=== PATIENT | female | born 1970 | race American Indian/Alaskan Native ===

== ENCOUNTER 2020-05-03 09:24 | Emergency (ER) | payer OTHER ==
[2020-05-03 10:38] LABS: Basophils % (Auto) 0.4 % (0.0-1.8); Eosinophils # (Auto) 0.1 K/mm3 (0.0-0.4); Eosinophils % (Auto) 0.9 % (0.0-4.3); Hematocrit 22.2 % (30.3-42.9); Hemoglobin 7.2 gm/dl (10.1-14.3); Lymphocytes # (Auto) 2.1 K/mm3 (1.2-5.4); Lymphocytes % (Auto) 26.1 % (13.4-35.0); Mean Corpuscular HGB Conc 32 % (30-34); Monocytes # (Auto) 0.6 K/mm3 (0.0-0.8); Platelet Count 372 K/mm3 (140-440); Red Blood Count 3.59 M/mm3 (3.65-5.03)
--- NOTE | 2020-05-03 10:45 | Emergency Department Report ---
ED Female HPI - General Chief complaint: Vaginal Bleeding Stated complaint: ABD PAIN, MENSTRAL HEAVY BLEEDING Time Seen by Provider: 05/03/20 10:41 Source: patient Mode of arrival: Ambulatory Limitations: No Limitations - History of Present Illness Initial comments: 50-year-old female, history of hypertension, fibroids, presents to ED with complaint of vaginal bleeding. Patient reports her menstrual period has been on for 2 weeks. States this is the first time her period has lasted this long. She states that usually last for 3 or 4 days, and is not heavy. However, this time she has had both heavy and prolonged bleeding. She reports history of fibroids for which she has had 3 surgeries, the last of which was 10 years ago. She denies any history of anemia. Patient reports dizziness, lightheadedness, fatigue. MD Complaint: vaginal bleeding -: week(s) (2) Severity: severe Quality: cramping Consistency: constant Improves with: none Worsens with: none Are you Now?: No Associated Symptoms: vaginal bleeding, abdominal pain - Related Data Previous Rx's Medication Instructions Recorded Last Taken Type Ferrous Sulfate [Ferrous Sulfate 324 mg PO TID #90 tablet. 05/03/20 Unknown Rx 324 MG] Norgestimate-Ethinyl Estradiol 1 each PO QDAY #18 tablet 05/03/20 Unknown Rx [Sprintec 28 Day Tablet] Sulfamethoxazole/Trimethoprim 1 each PO BID #6 tablet 05/03/20 Unknown Rx [Bactrim DS TAB] Allergies Allergy/AdvReac Type Severity Reaction Status Date / Time No Known Allergies Allergy Unverified 06/10/14 14:48 ED Review of Systems ROS: Stated complaint: ABD PAIN, MENSTRAL HEAVY BLEEDING Other details as noted in HPI Comment: All other systems reviewed and negative Constitutional: malaise, weakness Gastrointestinal: abdominal pain Genitourinary: abnormal menses Neurological: other (Reports dizziness) ED Past Medical Hx - Past Medical History Previous Medical History?: Yes Hx Hypertension: Yes - Surgical History Past Surgical History?: Yes Additional Surgical History: Fibroids - Social History Smoking Status: Never Smoker Substance Use Type: None - Medications Home Medications: Home Medications Medication Instructions Recorded Confirmed Last Taken Type Ferrous Sulfate [Ferrous Sulfate 324 mg PO TID #90 tablet. 05/03/20 Unknown Rx 324 MG] Norgestimate-Ethinyl Estradiol 1 each PO QDAY #18 tablet 05/03/20 Unknown Rx [Sprintec 28 Day Tablet] Sulfamethoxazole/Trimethoprim 1 each PO BID #6 tablet 05/03/20 Unknown Rx [Bactrim DS TAB] ED Physical Exam - General Limitations: No Limitations General appearance: alert, in no apparent distress - Head Head exam: Present: atraumatic, normocephalic - Eye Eye exam: Present: EOMI, other (Pale conjunctiva) - ENT ENT exam: Present: mucous membranes moist - Neck Neck exam: Present: normal inspection - Respiratory Respiratory exam: Present: normal lung sounds bilaterally. Absent: respiratory distress - Cardiovascular Cardiovascular Exam: Present: normal rhythm, tachycardia - GI/Abdominal GI/Abdominal exam: Present: soft, tenderness (suprapubic). Absent: distended - External exam: Present: normal external exam Speculum exam: Present: vaginal bleeding (pooling of blood in speculum) - Extremities Exam Extremities exam: Present: normal inspection - Neurological Exam Neurological exam: Present: alert, oriented X3 - Psychiatric Psychiatric exam: Present: normal affect, normal mood - Skin Skin exam: Present: warm, dry, intact, normal color ED Course Vital Signs 05/03/20 05/03/20 05/03/20 09:30 09:40 10:00 Temperature 98.6 F Pulse Rate 160 H 133 H 111 H Respiratory 18 19 20 Rate Blood Pressure 202/116 155/100 Blood Pressure [Left] O2 Sat by Pulse 100 100 100 Oximetry 05/03/20 05/03/20 05/03/20 10:48 11:00 12:10 Temperature Pulse Rate 106 H 91 H 92 H Respiratory 19 23 19 Rate Blood Pressure 149/90 149/90 Blood Pressure 155/100 [Left] O2 Sat by Pulse 100 100 100 Oximetry 05/03/20 05/03/20 05/03/20 12:18 13:00 15:35 Temperature 98.5 F Pulse Rate 97 H 85 82 Respiratory 20 20 16 Rate Blood Pressure 156/106 178/94 Blood Pressure 156/106 [Left] O2 Sat by Pulse 97 100 100 Oximetry 05/03/20 05/03/20 05/03/20 15:40 15:45 15:50 Temperature 98.5 F 98.3 F 98.4 F Pulse Rate 79 79 79 Respiratory 16 16 13 Rate Blood Pressure 147/85 143/88 156/82 Blood Pressure [Left] O2 Sat by Pulse 100 100 100 Oximetry 05/03/20 05/03/20 05/03/20 16:20 16:50 17:20 Temperature 98.4 F 98.4 F 97.7 F Pulse Rate 78 76 79 Respiratory 14 20 15 Rate Blood Pressure 153/89 156/96 167/89 Blood Pressure [Left] O2 Sat by Pulse 100 100 100 Oximetry - Consultations Consultation #1: 05/03/20 13:[address] Hayes. She recommends follow-up in office, d/c with 9-day regimen of hormone therapy. ED Medical Decision Making - Lab Data Result diagrams: 05/03/20 Unknown - Radiology Data Radiology results: report reviewed, image reviewed - Medical Decision Making 50-year-old female presents to ED with dysfunctional uterine bleeding, vaginal bleeding x2 weeks, heavy, with clots. Patient with history of uterine fibroids, several surgeries in the past. Today, pelvic ultrasound did show presence of fibroids. On exam, patient has pooling of blood and speculum. She is tachycardic, with report of feeling dizzy and fatigued. Hemoglobin 7.2, however due to active bleeding and symptomatic anemia, decision made to transfuse 1 unit of PRBCs. Spoke with on-call principal process engineer, who recommends discharge on Sprintec. I will also add iron pills as well. Urine also shows evidence of infection, so she will also be given prescription for antibiotics. Spoke with patient regarding risk of development of DVT and PE secondary to hormone therapy with combined tobacco use. Patient advised to stop smoking. Advised her to seek medical care immediately if she develops any chest pain, shortness of breath, leg pain or swelling. Repeat H&H following transfusion shows hemoglobin of 7.8. Patient's tachycardia has resolved. She will be discharged at this time. - Differential Diagnosis Anemia, uterine fibroids, malignancy Critical Care Time: Yes Critical care time in (mins) excluding proc time.: 35 Critical care attestation.: If time is entered above; I have spent that time in minutes in the direct care of this critically ill patient, excluding procedure time. Critical Care Time: 35 min ED Disposition Clinical Impression: Anemia, Uterine fibroid, Dysfunctional uterine bleeding, UTI (urinary tract infection) Disposition: TO HOME OR SELFCARE Is pt being admited?: No Condition: Stable Instructions: Preventing Iron Deficiency Anemia, Adult, Urinary Tract Infection, Adult, Dysfunctional Uterine Bleeding, Dysfunctional Uterine Bleeding (ED), Uterine Fibroids (ED), Anemia (ED) Prescriptions: Sulfamethoxazole/Trimethoprim [Bactrim DS TAB] 1 each PO BID #6 tablet Ferrous Sulfate [Ferrous Sulfate 324 MG] 324 mg PO TID #90 tablet. Norgestimate-Ethinyl Estradiol [Sprintec 28 Day Tablet] 1 each PO QDAY #18 tablet Referrals: PRIMARY CAREMD [Primary Care Provider] - 3-5 Days MACRINA HAYES MD [Staff Physician] - 3-5 Days Forms: Work/School Release Form(ED)
[2020-05-03 11:00] LABS: Mean Corpuscular Volume 62 fl (79-97)
--- NOTE | 2020-05-03 12:09 | Ultrasound Report ---
ULTRASOUND PELVIS INDICATION / CLINICAL INFORMATION: MAIN. TECHNIQUE: Transabdominal. Duplex Color Doppler used: Yes. COMPARISON: None available FINDINGS: UTERUS: Enlarged uterus is noted measuring 15.2 x 7.6 x 9.3 cm with multiple intramural and subserosa l uterine fibroids. Fibroid at the uterine fundus measures 2.8 x 2.1 x 2.5 cm. Additional posterior u terine wall fibroids measure 3.8 x 3.4 x 3.6, 4.2 x 3.5 x 4.2, and 3.6 x 3.5 x 3.4 cm respectively. A dditional fibroid of the anterior uterine wall measures 2.9 x 2.2 x 3.5 cm. Smaller lesion at the lev el the cervix measures 0.7 x 0.4 x 1 cm. Endometrial thickness measures 4.1 mm and is minimally displ aced by fibroids. RIGHT ADNEXA: Simple right ovarian cyst measures 2.2 cm. No solid appearing lesion. Normal color Dopp ler blood flow. LEFT ADNEXA: Simple left ovarian cyst measures 1.4 cm. No solid lesions. Normal color Doppler blood f low. URINARY BLADDER: No significant abnormality. FREE FLUID: None. ADDITIONAL FINDINGS: None. IMPRESSION: 1. Enlarged uterus with numerous uterine fibroids described in detail above. Signer Name: Jordan Evans MD Signed: 05/03/2020 12:04 PM Workstation Name: [id number]
[2020-05-03] MEDS ORDERED: SODIUM CHLORIDE 0.9% 500 ML 500 ML IV ONE (13:19)
[2020-05-03] MEDS ORDERED: KETOROLAC 30 MG/1 ML INJ IV ONE (13:28)
[2020-05-03 15:35] LABS: Bilirubin,Urine NEG (Negative); Blood,Urine LG (Negative); Color,Urine Red (Yellow); Urobilinogen,Urine < 2.0 mg/dL (<2.0)
[2020-05-03 15:43] LABS: Bacteria,Urine 4+ /HPF (Negative)
[2020-05-03 15:48] LABS: Protein,Urine >500 mg/dL (Negative); RBC,Urine > 182.0 /HPF (0.0-6.0)
[2020-05-03 15:49] LABS: WBC,Urine > 182.0 /HPF (0.0-6.0)
[2020-05-03 18:06] LABS: Hematocrit 24.2 % (30.3-42.9); Hemoglobin 7.8 gm/dl (10.1-14.3)
[2020-05-03 18:28] VITALS: BP 158/89
== END 2020-05-03 18:27 | disposition home or self-care (01) ==
LOC: ED 09:24
DX: D25.9 Leiomyoma of uterus, unspecified (principal); N39.0 Urinary tract infection, site not specified; N93.8 Other specified abnormal uterine and vaginal bleeding; D64.9 Anemia, unspecified; I10 Essential (primary) hypertension; Z98.890 Other specified postprocedural states; Z79.899 Other long term (current) drug therapy
CPT/HCPCS: 36415; 36430; 76856; 81001; 84702; 84703; 85014; 85018; 85025; 86850; 86900; 86901; 86920; 96361; 96374; 99291; J1885; J7040; P9016

== ENCOUNTER 2020-07-10 14:26 | Outpatient (CLI) | payer OTHER ==
--- NOTE | 2020-07-10 15:34 | Mammography Report ---
DIGITAL SCREENING MAMMOGRAM WITH CAD, 07/10/2020 CLINICAL INFORMATION / INDICATION: Routine screening mammography. SCREENING MAMMO TECHNIQUE: Digital bilateral 2D mammography was obtained in the craniocaudal and mediolateral obliqu e projections. This examination was interpreted with the benefit of Computer-Aided Detection analysis . COMPARISON: 08/11/2013 FINDINGS: Breast Density: The breasts are extremely dense, which lowers the sensitivity of mammography. No dominant mass, suspicious calcifications, or architectural distortion in either breast. IMPRESSION: No mammographic evidence of malignancy. Follow up recommendation: Routine yearly BI-RADS Category 1: Negative. A "normal" or negative report should not discourage follow up or biopsy of a clinically significant f inding. A written summary of these findings will be mailed to the patient. The patient will be entered into a mammography reporting system which will generate a reminder letter for the patient's next appointmen t at the appropriate interval. The [employer] recommends yearly mammograms starting at age 40 and continuing as l ana m as a woman is in good health. Breast MRI is recommended for women with an approximate 20-25% or greater lifetime risk of breast cancer, including women with a strong family history of breast or ova nakia cancer or who have been treated for Hodgkin's disease. Signer Name: Ivan Dalton MD Signed: 07/10/2020 3:29 PM Workstation Name: [id number]
== END 2020-07-10 14:27 | disposition home or self-care (01) ==
LOC: MAMMO 14:26
PROVIDERS: ATTEND Physician Assistant Medical
DX: Z12.31 Encounter for screening mammogram for malignant neoplasm of breast (principal)
CPT/HCPCS: 77067